=== PATIENT | female | born 1945 | race Caucasian/White ===

== ENCOUNTER 2021-11-25 00:31 | Emergency (ER) | payer MEDICARE ==
[~2021-11-25] VITALS: Ht 162.5 cm; Wt 95.3 kg
[2021-11-25 01:56] VITALS: BP 150/93
[2021-11-25] MEDS ORDERED: RX-NIRMATRELVIR/RITONAVIR (PAXLOVID) #30 TABS PO SCH (02:00)
--- NOTE | 2021-11-25 02:00 | ED Cough/URI ---
General Chief Complaint: COVID19 Suspect/Confirmed Stated Complaint: CHILLS,COUGH,HEAVINESS IN CHEST Nursing Triage Note: PT ARRIVAL TO ER WITH COMPLAINTS OF SUDDEN BODY ACHES, CHILLS, FATIGUE, AND TIGHTNESS TO THE CHEST AFTER COUGH. PT STATES THAT SHE IS FULLY VACCINATED, BUT IS UNSURE WHY SHE IS HAVING THESE SYMPTOMS. PT DENIES RECENT EXPOSURE TO COVID. 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 oz. kg; 36.00 BMI Method: Progress/Results/Core Measures Suspected Sepsis SIRS Temperature: Pulse: 84 Respiratory Rate: 16 Blood Pressure 123 /66 Mean: 85 Results/Orders Lab Results Laboratory Tests Test 11/25/21 00:46 Range/Units Influenza Type A (RT-PCR) Not Detected Not Detecte Influenza Type B (RT-PCR) Not Detected Not Detecte SARS-CoV-2 RNA (RT-PCR) Detected H Not Detecte My Orders Orders - STEPHANIE GALLARDO DO Covid 19 Inhouse Test (11/25/21 00:39) Influenza A And B By Pcr (11/25/21 00:39) Isolation Central Supply Req (11/25/21 00:39) Chest 1 View, Ap/Pa Only (11/25/21 00:48) Rx-Nirmatrelvir/Ritonavir(Eua) (Rx-Paxlo (11/25/21 02:00) Vital Signs/I&O 11/25/21 11/25/21 00:49 00:49 Temp 37.2 Pulse 84 Resp 16 B/P (MAP) 123/66 (85) Pulse Ox 98 O2 Delivery Room Air Room Air Capillary Refill : Less Than 3 Seconds Blood Pressure Mean: 85 Departure Impression Primary Impression: COVID-19 virus infection Disposition: 01 HOME, SELF-CARE Condition: Stable Departure-Patient Inst. Decision time for Depature: 01:55 Referrals: NO,LOCAL PHYSICIAN (PCP/Family) Primary Care Physician Patient Instructions: COVID-19 Home Care/Discharge, Nirmatrelvir and Ritonavir FDA Fact Sheet, Preventing the Spread of an Infectious Disease Add. Discharge Instructions: CONTINUE YOUR REGULAR MEDICATIONS PRESCRIBED TYLENOL AND MOTRIN NEEDED FOR PAIN OR FEVER OVER THE COUNTER MEDICATIONS NEEDED FOR COUGH AND CONGESTION LOTS OF CLEAR LIQUIDS QUARANTINE YOURSELF AND ALL HOUSEHOLD AND CLOSE CONTACTS FOR 10 DAYS RETURN TO ER IF SYMPTOMS WORSEN All discharge instructions reviewed with patient and/or family. Voiced understanding. STEPHANIE GALLARDO DO Nov 25, 2021 02:00
--- NOTE | 2021-11-25 06:33 | Diagnostic Imaging Report ---
EXAMINATION: Chest 1 view HISTORY: COUGH, DYSPNEA COMPARISON: None available. FINDINGS: Heart size and pulmonary vasculature are normal. There is elevation of the right hemidiaphragm. No pleural effusion or pneumothorax. Mild perihilar basilar interstitial opacities. The osseous structures are intact. IMPRESSION: 1. Mild perihilar bibasilar interstitial opacities which may represent atelectasis, pulmonary edema, or atypical infection. Dictated by: Dictated on workstation # [id number]
== END 2021-11-25 02:27 | disposition home or self-care (01) ==
LOC: ER 00:34
DX: U07.1 COVID-19 (principal)
CPT/HCPCS: 71045; 87636

== ENCOUNTER 2021-11-30 14:58 | Emergency (ER) | payer MEDICARE ==
[~2021-11-30] VITALS: Ht 157 cm; Wt 90.7 kg
--- NOTE | 2021-11-30 15:44 | ED Cough/URI ---
General Chief Complaint: COVID19 Suspect/Confirmed Stated Complaint: COVID +,COUGH Nursing Triage Note: PT PRESENTS TO ED WITH COMPLAINTS OF WORSENING COUGH SINCE BEING DIAGNOSED WITH COVID ON FRIDAY. PT REPORTS SHE STARTED FEELING SICK THAT FRIDAY. Source: patient Exam Limitations: no limitations History of Present Illness Date Seen by Provider: Nov 30, 2021 Time Seen by Provider: 15:42 Initial Comments Patient is a 76-year-old female with a history of stroke who presents ED with cough, shortness of breath. She states that she was having symptoms of chills bodyaches fatigue started last Friday. Tested positive for COVID on Friday. Was provided paxolvid and recommend Robitussin for the cough. She has finished the medication but still having a dry cough with some shortness of breath with the cough. Denies any chest pain, abdominal pain, vomiting, diarrhea, fever. Still continue having chills. Patient is concerning for her cough. No known history of CHF, coronary artery disease, COPD or asthma. Denies smoking. Patient states coughing makes it worse asleep at night Allergies and Home Medications Allergies Coded Allergies: No Known Drug Allergies (Unverified , 11/25/21) Patient Home Medication List Home Medication List Reviewed: Yes Benzonatate (Tessalon Perles) 100 Mg Capsule, 200 MG PO TID PRN for COUGH Prescribed by: WES DIMAS on 11/30/21 1739 Review of Systems Review of Systems Constitutional: chills; No diaphoresis; malaise, weakness EENTM: No ear pain, No blurred vision, No double vision Respiratory: cough; No dyspnea on exertion; short of breath Cardiovascular: No chest pain Gastrointestinal: No abdominal pain, No diarrhea, No nausea, No vomiting Genitourinary: No decreased output, No discharge Musculoskeletal: No back pain, No joint pain Skin: No change in color All Other Systems Reviewed Negative Unless Noted: Yes Past Vzmndzf-Asbdzk-Ejmgvh Hx Patient Social History Tobacco Use?: No Substance use?: No Alcohol Use?: No Pt feels they are or have been: No Immunizations Up To Date First/Initial COVID19 Vaccinat: 10/17 Second COVID19 Vaccination Cristhian: 10/17 Third COVID19 Vaccination Date: 10/17 COVID19 Vaccine 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 oz. kg; 36.00 BMI Method: General Appearance: WD/WN, no apparent distress Eyes: Bilateral Eye Normal Inspection, Bilateral Eye PERRL, Bilateral Eye EOMI HEENT: PERRL/EOMI, normal ENT inspection, TMs normal, pharynx normal Neck: non-tender, full range of motion, supple, normal inspection Respiratory: chest non-tender, lungs clear, normal breath sounds, no respiratory distress, no accessory muscle use Cardiovascular: regular rate, rhythm, no edema, no gallop, no JVD Gastrointestinal: normal bowel sounds, non tender, soft Extremities: normal range of motion, non-tender, normal inspection, no pedal edema Neurologic/Psychiatric: grappler II-XII nml as tested, no motor/sensory deficits, alert, normal mood/affect Skin: normal color, warm/dry Progress/Results/Core Measures Suspected Sepsis SIRS Temperature: Pulse: 80 Respiratory Rate: 16 Laboratory Tests 11/30/21 16:40: White Blood Count 7.8 Blood Pressure 141 /75 Mean: 97 Laboratory Tests 11/30/21 16:40: Creatinine 0.71, Platelet Count 299, Total Bilirubin 0.3 Results/Orders Lab Results Laboratory Tests Test 11/30/21 16:40 Range/Units White Blood Count 7.8 4.3-11.0 10^3/uL Red Blood Count 4.77 3.80-5.11 10^6/uL Hemoglobin 13.9 11.5-16.0 g/dL Hematocrit 42 35-52 % Mean Corpuscular Volume 89 80-99 fL Mean Corpuscular Hemoglobin 29 25-34 pg Mean Corpuscular Hemoglobin Concent 33 32-36 g/dL Red Cell Distribution Width 13.5 10.0-14.5 % Platelet Count 299 130-400 10^3/uL Mean Platelet Volume 9.8 9.0-12.2 fL Immature Granulocyte % (Auto) 0 % Neutrophils (%) (Auto) 56 42-75 % Lymphocytes (%) (Auto) 32 12-44 % Monocytes (%) (Auto) 5 0-12 % Eosinophils (%) (Auto) 6 0-10 % Basophils (%) (Auto) 1 0-10 % Neutrophils # (Auto) 4.4 1.8-7.8 10^3/uL Lymphocytes # (Auto) 2.5 1.0-4.0 10^3/uL Monocytes # (Auto) 0.4 0.0-1.0 10^3/uL Eosinophils # (Auto) 0.5 H 0.0-0.3 10^3/uL Basophils # (Auto) 0.0 0.0-0.1 10^3/uL Immature Granulocyte # (Auto) 0.0 0.0-0.1 10^3/uL Sodium Level 140 135-145 MMOL/L Potassium Level 4.5 3.6-5.0 MMOL/L Chloride Level 101 98-107 MMOL/L Carbon Dioxide Level 25 21-32 MMOL/L Anion Gap 14 5-14 MMOL/L Blood Urea Nitrogen 17 7-18 MG/DL Creatinine 0.71 0.60-1.30 MG/DL Estimat Glomerular Filtration Rate 89 BUN/Creatinine Ratio 24 Glucose Level 102 70-105 MG/DL Calcium Level 9.6 8.5-10.1 MG/DL Corrected Calcium 9.2 8.5-10.1 MG/DL Total Bilirubin 0.3 0.1-1.0 MG/DL Aspartate Amino Transf (AST/SGOT) 15 5-34 U/L Alanine Aminotransferase (ALT/SGPT) 19 0-55 U/L Alkaline Phosphatase 95 40-136 U/L Troponin I < 0.028 <0.028 NG/ML C-Reactive Protein High Sensitivity 0.93 H 0.00-0.50 MG/DL B-Type Natriuretic Peptide < 10.0 <100.0 PG/ML Total Protein 7.7 6.4-8.2 GM/DL Albumin 4.5 3.2-4.5 GM/DL Procalcitonin 0.03 <0.10 NG/ML My Orders Orders - BRAYAN ROE Cbc With Automated Diff (11/30/21 15:41) Comprehensive Metabolic Panel (11/30/21 15:41) Troponin I [place] (11/30/21 15:41) Hs C Reactive Protein (11/30/21 15:41) Procalcitonin (Pct) (11/30/21 15:41) Bnp Kay (11/30/21 15:41) Chest 1 View, Ap/Pa Only (11/30/21 15:41) Ekg Tracing (11/30/21 15:41) Prednisone Tablet (Deltasone Tablet) (11/30/21 17:45) Rx-Albuterol Inhaler (Rx-Ventolin Hfa In (11/30/21 17:45) Vital Signs/I&O 11/30/21 11/30/21 15:34 17:57 Temp 36.9 36.9 Pulse 80 80 Resp 16 20 B/P (MAP) 141/75 (97) 138/70 Pulse Ox 93 93 Capillary Refill : Less Than 3 Seconds Blood Pressure Mean: 97 Departure Communication (PCP) Patient on arrival no acute distress. Vital signs were stable. Oxygen 93 to 95% on room air. She does have a history of sleep apnea but not wearing her CPAP secondary to her coughing. She is concerned for her coughing. She was diagnosed with COVID on Friday. Patient was given an albuterol inhaler here as she had some very minimal wheezing. Chest x-ray did show some interstitial Pacey likely secondary to COVID. She had normal white blood count and otherwise normal lab work. Her cardiac work-up unremarkable. She is not hypoxic or ta chycardic. No chest pain. She does have some chest discomfort while coughing. She has been taken Robitussin. She is requesting something different for the cough which I will discharged with Lynette Mix. I did discuss continue wearing the CPAP as much as she could. She does not wear oxygen daily. Her walking oxygen was above 93%. Discussed with patient she needs to continue monitoring her oxygen level. If this decreases into the 80s strongly recommend returning back to the ED. She initially was given a dose of prednisone here but after she told me she was diabetic we will attempt to not provide steroids at this time. The wheezing improved after than inhaler but did make her cough a little bit more. Coughing continue to improve. This does not appear to be a bacterial type infection and likely secondary to the COVID. If any worsening symptoms return back to ED for further evaluation. Impression Primary Impression: COVID-19 virus infection Disposition: HOME, SELF-CARE Condition: Stable Departure-Patient Inst. Decision time for Depature: 17:35 Referrals: [facility] [place] NO,LOCAL PHYSICIAN (PCP) Primary Care Physician Patient Instructions: COVID-19 (DC) Add. Discharge Instructions: Recommend a pulse ox to monitor oxygen level. If any worsening symptoms such as shortness of breath return back to ED All discharge instructions reviewed with patient and/or family. Voiced understanding. Scripts Benzonatate (TESSALON PERLES) 100 Mg Capsule 200 MG PO TID PRN for COUGH, #20 CAP Prov: BRAYAN ROE 11/30/21 BRAYAN ROE Nov 30, 2021 15:44
[2021-11-30 16:52] LABS: BASOPHILS % (AUTO) 1 % (0-10); EOSINOPHILS # (AUTO) 0.5 10^3/uL (0.0-0.3); EOSINOPHILS % (AUTO) 6 % (0-10); HEMATOCRIT 42 % (35-52); HEMOGLOBIN 13.9 g/dL (11.5-16.0); LYMPHOCYTES # (AUTO) 2.5 10^3/uL (1.0-4.0); LYMPHOCYTES % (AUTO) 32 % (12-44); MEAN CORPUSCULAR HEMOGLOBIN 29 pg (25-34); MEAN CORPUSCULAR HGB CONC 33 g/dL (32-36); MEAN CORPUSCULAR VOLUME 89 fL (80-99); MEAN PLATELET VOLUME 9.8 fL (9.0-12.2); MONOCYTES # (AUTO) 0.4 10^3/uL (0.0-1.0); MONOCYTES % (AUTO) 5 % (0-12); NEUTROPHILS # (AUTO) 4.4 10^3/uL (1.8-7.8); NEUTROPHILS % (AUTO) 56 % (42-75); PLATELET COUNT 299 10^3/uL (130-400); WHITE BLOOD COUNT 7.8 10^3/uL (4.3-11.0)
--- NOTE | 2021-11-30 16:52 | Diagnostic Imaging Report ---
INDICATION: Worsening cough since being recently diagnosed with COVID. TECHNIQUE: Single-view chest at 04:24 p.m. CORRELATION STUDY: 11/25/2021. FINDINGS: Patient is slightly rotated towards the right. Heart size is within normal limits. Some fullness of the right hilar and right superior paramediastinal region overall appears relatively stable given difference in technique. Elevated right diaphragm. Minimal interstitial opacities at both lung bases. No definitive new consolidating infiltrate. IMPRESSION: 1. Relatively stable chest with minimal basilar interstitial opacities. No infiltrate. 2. Suggestion of slight fullness of the right hilum and right superior paramediastinal region overall unchanged. Would recommend repeat imaging in approximately two to three months for reassessment. Dictated by: Dictated on workstation # [id number]
[2021-11-30 17:10] LABS: ALBUMIN 4.5 GM/DL (3.2-4.5); CHLORIDE 101 MMOL/L (98-107); POTASSIUM 4.5 MMOL/L (3.6-5.0); SODIUM 140 MMOL/L (135-145)
[2021-11-30 17:11] LABS: CALCIUM 9.6 MG/DL (8.5-10.1)
[2021-11-30 17:12] LABS: GLUCOSE 102 MG/DL (70-105)
[2021-11-30 17:13] LABS: TOTAL PROTEIN 7.7 GM/DL (6.4-8.2)
[2021-11-30 17:14] LABS: BILIRUBIN,TOTAL 0.3 MG/DL (0.1-1.0); CARBON DIOXIDE 25 MMOL/L (21-32)
[2021-11-30 17:16] LABS: ALKALINE PHOSPHATASE 95 U/L (40-136); CREATININE SERUM 0.71 MG/DL (0.60-1.30); GFR ESTIMATED 89
[2021-11-30 17:17] LABS: BUN/CREATININE RATIO 24
[2021-11-30 17:19] LABS: ALANINE AMINOTRANSFERASE 19 U/L (0-55)
[2021-11-30] MEDS ORDERED: BENZ100C18 PO (17:39)
[2021-11-30] MEDS ORDERED: RX-ALBUTEROL INHALER 8.5 GM HFA (PROAIR) IH ONE (17:45)
[2021-11-30] MEDS ORDERED: predniSONE 20 MG TAB PO ONE (17:45)
[2021-11-30 17:57] VITALS: BP 138/70
== END 2021-11-30 17:56 | disposition home or self-care (01) ==
LOC: EDUNIT# 14:58 → ER 14:59
DX: U07.1 COVID-19 (principal); Z73.0 Burn-out
CPT/HCPCS: 36415; 71045; 80053; 83880; 84145; 84484; 85025; 86141; 93005